=== PATIENT | female | born 1970 | race African-American/Black ===

== ENCOUNTER → 2016-12-12 16:44 | Outpatient (CLI) | payer MEDICAID ==
[2012-10-18 06:31] VITALS: BMI 47.2
== END | disposition home or self-care (01) ==
LOC: D.MAMMO 11-20 16:15
DX: Z12.31 Encounter for screening mammogram for malignant neoplasm of breast (principal)

== ENCOUNTER → 2017-04-01 09:12 | Outpatient (CLI) | payer SELFPAY ==
[2012-10-18 06:31] VITALS: BMI 47.2
== END | disposition home or self-care (01) ==
LOC: D.US 09:12
DX: M79.89 Other specified soft tissue disorders (principal)

== ENCOUNTER → 2020-03-01 15:40 | Outpatient (CLI) | payer MEDICAID ==
[2012-10-18 06:31] VITALS: BMI 47.2
== END | disposition home or self-care (01) ==
LOC: D.LABREF 15:40
PROVIDERS: ATTEND Otolaryngology
DX: J34.89 Other specified disorders of nose and nasal sinuses (principal)